=== PATIENT | female | born 1955 | race Caucasian/White ===

== ENCOUNTER → 2018-03-27 | Outpatient (CLI) | payer MEDICAID ==
[~2018-03-27] MED LIST: ASCO500T8 PO; ATOR10TA PO; BUPR100T11 PO; CYAN1TAB29 PO; FISH OIL PO; FLUO40CA2 PO; FURO20TA3 PO; GABA600T2 PO; MULT-516 PO; POTA10TA5 PO; TOLT2CAP PO; ZINC PO
== END | disposition home or self-care (01) ==
LOC: STAR 13:00
PROVIDERS: ATTEND Internal Medicine Gastroenterology
DX: Z01.818 Encounter for other preprocedural examination (principal); Z86.010 Personal history of colon polyps; Z80.0 Family history of malignant neoplasm of digestive organs; Z88.5 Allergy status to narcotic agent
CPT/HCPCS: 36415; 71046; 80053; 85025; 93005

== ENCOUNTER 2018-06-25 14:08 | Emergency (ER) | payer MEDICAID ==
[~2018-06-25] VITALS: Ht 162.6 cm; Wt 139.9 kg
[~2018-06-25 14:08] MED LIST changes: -GABA600T2 PO; +GABA600T7 PO
[2018-06-25 14:13] VITALS: BP 114/79
[2018-06-25] MEDS ORDERED: BACITRACIN ZINC OINT 500U/GM, 0.9 GM ONE (14:53)
== END 2018-06-25 15:23 | disposition home or self-care (01) ==
LOC: ED 15:17
DX: S61.201A Unspecified open wound of left index finger without damage to nail, initial encounter (principal); F17.200 Nicotine dependence, unspecified, uncomplicated; W26.0XXA Contact with knife, initial encounter; Y93.89 Activity, other specified; Y92.009 Unspecified place in unspecified non-institutional (private) residence as the place of occurrence of the external cause; Y99.8 Other external cause status
CPT/HCPCS: 99283

== ENCOUNTER 2019-03-25 16:07 | Emergency (ER) | payer MEDICAID ==
[~2019-03-25] VITALS: Ht 162.6 cm; Wt 153.7 kg
[2019-03-25 16:10] VITALS: BP 143/84
[2019-03-25] MEDS ORDERED: HYDROcodone/APAP 5/325 TABLET ONE (16:24)
[2019-03-25] MEDS ORDERED: DIPH,PERTUSS(ACELL),TET VAC/PF 0.5 ML IM-VACC ONE ×2 (16:24→16:30)
[2019-03-25] MEDS ORDERED: HYDROcodone/APAP 5/325 TABLET PO ONE (16:30)
--- NOTE | 2019-03-25 17:56 | NUR ---
DC EDUCATION PROVIDED, PT DEMONSTRATES UNDERSTANDING. PT AMBULATED STEADILY TO DC WITH RN AND FRIEND. FRIEND TO TRANSPORT PT HOME
== END 2019-03-25 17:58 | disposition home or self-care (01) ==
LOC: ED 16:57
DX: S61.512A Laceration without foreign body of left wrist, initial encounter (principal); S51.812A Laceration without foreign body of left forearm, initial encounter; S63.522A Sprain of radiocarpal joint of left wrist, initial encounter; S63.512A Sprain of carpal joint of left wrist, initial encounter; F17.200 Nicotine dependence, unspecified, uncomplicated; W01.0XXA Fall on same level from slipping, tripping and stumbling without subsequent striking against object, initial encounter; Y93.89 Activity, other specified; Y92.009 Unspecified place in unspecified non-institutional (private) residence as the place of occurrence of the external cause; Y99.8 Other external cause status
CPT/HCPCS: 12004; 90471; 90715